=== PATIENT | female | born 1985 | race Caucasian/White ===

== ENCOUNTER 2018-08-01 07:20 | Emergency (ER) | payer OTHER, MEDICAID, SELFPAY ==
--- NOTE | 2018-08-01 07:22 | ED_ITS ---
HPI - General Adult General Chief complaint: Upper Respiratory Symptoms Stated complaint: thinks strep throat Time Seen by Provider: 08/01/18 07:21 Source: patient Mode of arrival: ambulatory Limitations: no limitations History of Present Illness HPI narrative: Otherwise healthy 32-year-old female here for evaluation of a sore throat. Patient states that her and son had similar symptoms a couple days ago and they resolved within a couple days. She states that for the past 1-2 days she has had some sinus congestion with ear fullness. She states that last evening she started to car often had a very sore throat. Did have a fever this morning and took Tamiflu and Motrin prior to arrival here in the ER. Has had strep throat in the past. Related Data Previous Rx's Medication Instructions Recorded citalopram [Celexa] 30 mg PO QDAY #45 tab 10/01/17 Allergies Allergy/AdvReac Type Severity Reaction Status Date / Time No Known Drug Allergies Allergy Verified 03/29/18 18:09 Review of Systems Constitutional Reports fever(s) and Denies headache(s) Eyes Denies blurry vision ENT Ears, Nose, Mouth, and Throat: Denies vertigo, Denies dizziness, Denies headache (s), Denies mouth pain, Denies disequilibrium, Denies post nasal drip, Reports sinus pain, Reports sinus pressure, Reports sore throat and Reports throat swelling Cardiovascular Denies chest pain and Denies dyspnea Respiratory Reports cough and Denies dyspnea Gastrointestinal Gastrointestinal: Denies nausea and Denies vomiting Integumentary/Breasts Denies rash Neurologic Denies vertigo, Denies dizziness, Denies headache(s) and Denies disequilibrium Allergic/Immunologic Reports throat swelling PFSH Medical History Healthy adult (Acute) Surgical History No pertinent past surgical history (Acute) History of third molar tooth extraction (Resolved) Social History marital status: Smoking Status: Former smoker Exam Initial Vital Signs Initial Vital Signs: Vital Signs Temperature 98.7 F 08/01/18 07:26 Pulse Rate 110 H 08/01/18 07:26 Respiratory Rate 20 08/01/18 07:26 Blood Pressure 150/95 H 08/01/18 07:26 Pulse Oximetry 96 08/01/18 07:26 Const General: cooperative, comfortable, well developed, well groomed, No acute distress and diaphoretic Orientation: alert, awake and oriented x3 HENMT Head: normal to inspection, normocephalic and atraumatic Ears: TM's normal bilaterally Nose: external nose normal Face and sinus: normal facial exam Mouth: oral mucosae normal Teeth and gingiva: dentition normal Throat: abnormal tonsil, uvula not displaced, no uvular edema and other ( Posterior oral pharynx edema with erythema and exudate) Neck Lymphatic: lymphadenopathy Resp Effort & Inspection: normal respiratory effort Auscultation: clear to auscultation bilaterally Cardio Rate: tachycardic Heart Sounds: no murmurs Pulses: radial pulses present Skin Lesions: no lesions Rashes: no rashes Neuro General: alert, awake and oriented x3 Extrem General: normal to inspection and capillary refill normal Psych Appearance: grossly normal and well kempt Course Vital Signs - 8 hr 08/01/18 07:26 Temperature 98.7 F Pulse Rate 110 H Respiratory Rate 20 Blood Pressure 150/95 H Pulse Oximetry 96 Medical Decision Making Lab Data Lab results reviewed: Yes I reviewed the patient's lab results. MDM Narrative Medical decision making narrative: Patient was group A strep positive and this does fit with her history and physical exam. Offered her to options for treatment to include an intramuscular injection of Bicillin versus oral antibiotics at home. Patient opted for the intramuscular injection which was given here in the emergency department. She was instructed on other symptom treatment to include staying hydrated and Tylenol/Motrin for any fevers and body aches. Patient was given return precautions. She expressed understanding and agreement plan. Discharge Plan Departure Patient Disposition: Home Clinical Impression: Acute streptococcal pharyngitis Instructions: DI for Strep Throat Activity Restrictions/Additional Instructions: Make sure you are staying hydrated. Frequent washing of hands using the mask like we discussed will help prevent spread. Use Tylenol/ibuprofen for any fever or body aches. Return to the emergency department for any new or worsening symptoms Prescriptions: No Action citalopram [Celexa] 20 MG tablet 30 mg PO QDAY Qty: 45 RF: 3
[2018-08-01 07:26] VITALS: BP 150/95; PULSE 110; RESP 20; TEMP 37.1; O2SAT 96; BMI 39.0
[2018-08-01] MEDS: PENICILLIN G BENZATHINE 1,200,000 UNIT/2 ML SYRINGE 1200000 UNIT IM (08:06)
[2018-08-01 08:30] VITALS: BP 133/88; PULSE 86; RESP 18; TEMP 36.6; O2SAT 98
[2018-08-01] MEDS: BENZOCAINE/MENTHOL 1 LOZ PKT 1 EACH PO (08:36)
== END 2018-08-01 08:42 | disposition home or self-care (01) ==
PROVIDERS: Emergency Provider Emergency Medicine; PCP Obstetrics & Gynecology
DX: J02.0 Streptococcal pharyngitis (principal)
CPT/HCPCS: 87880; 96372; 99282; 99283; J0561

== ENCOUNTER 2020-02-01 16:32 | Emergency (ER) | payer OTHER, MEDICAID, SELFPAY ==
[2020-02-01 16:46] VITALS: BP 177/101; PULSE 82; RESP 16; TEMP 37.1; O2SAT 99; BMI 45.1
[2020-02-01 17:47] VITALS: BP 152/81; PULSE 91; RESP 16; O2SAT 96
[2020-02-01] MEDS: KETOROLAC 60 MG/2 ML VIAL 30 MG IM (17:53)
[2020-02-01] MEDS: HYDROCODONE/ACET 5/325 TABLET 1 TAB PO (17:53)
[2020-02-01] MEDS: AMOXICILLIN 250 MG CAPSULE 1000 MG PO (18:03)
--- NOTE | 2020-02-01 18:13 | ED.DENTAL ---
HPI - Dental/Oral <Carol SakrarRANJEET - Last Filed: 02/01/20 18:22> General Chief complaint: Dental/Oral Stated complaint: states abcessed tooth Time Seen by Provider: 02/01/20 17:04 Source: patient Mode of arrival: Ambulatory Limitations: no limitations History of Present Illness HPI Narrative: 34yo female history of multiple dental caries, presents emergency department complaining of tooth pain to her right lower jaw for the past few days. Patient reports she was eating a cashew when a piece broke off and went down into my tooth under jaw line. Patient states she has been trying to remove the piece with water, a Waterpik, and picking it. However, she states she has had increasing pain and noticed some swelling today. She is concern is infected. She does have a dentist appointment scheduled on Sunday. She states ?I was trying to wait until Sunday to get into the dentist but the pain is too bad ?. Patient states she has been alternating Tylenol and ibuprofen which is not helping. She denies any other symptoms such as chest pain, shortness of breath, fevers, chills, nausea, vomiting, diarrhea, or any other concerns. Related Data Home Medications Medication Instructions Recorded Confirmed multivitamin 1 tab PO DAILY 04/30/19 04/30/19 Previous Rx's Medication Instructions Recorded lidocaine-prilocaine 2.5 %-2.5 % 1 applictn TOP BID PRN #5 gram 10/15/19 topical cream norelgestromin 150 mcg-e.estradiol 1 patch TRANSDERMAL QWEEK #3 each 10/15/19 35 mcg/24 hr weekly transderm patch valacyclovir 1 gram tablet 1,000 mg PO BID PRN #20 tab 10/15/19 citalopram 20 mg tablet 20 mg PO DAILY #90 tab 10/27/19 trazodone 50 mg tablet 50 mg PO BEDTIME #90 tab 10/27/19 levonorgestrel 1.5 mg tablet 1.5 mg PO ONCE #1 tab 12/31/19 amoxicillin 500 mg PO Q8H 3 Days #11 cap 02/01/20 amoxicillin 500 mg PO Q8H 3 Days #9 cap 02/01/20 hydrocodone-acetaminophen [Wyocena] 1 tab PO Q8H PRN #3 tab 02/01/20 Allergies Allergy/AdvReac Type Severity Reaction Status Date / Time No Known Drug Allergies Allergy Verified 10/15/19 10:32 Review of Systems <RANJEET Forrest - Last Filed: 02/01/20 18:22> Review of Systems Narrative: REVIEW OF SYSTEMS: GENERAL: Denies fever or chills. HENT: No head trauma. Reports dental pain, see HPI. CARDIOVASCULAR: No chest pain. RESPIRATORY: No shortness of breath or cough. GASTROINTESTINAL: No nausea, vomiting, diarrhea, or constipation. MUSCULOSKELETAL: No pain, weakness, or deformities. INTEGUMENTARY: No rash, lesions, or pruritus. NEURO: Denies numbness or tingling. Patient History <RANJEET Forrest - Last Filed: 02/01/20 18:22> Medical History Anxiety (Chronic ~2007) Chronic back pain (Chronic ~2010) Depression (Chronic ~2007) Healthy adult (Acute) Herpes (Inactive ~2010) Painful menstrual periods (Chronic ~2018) Surgical History History of third molar tooth extraction (Resolved) No pertinent past surgical history (Acute) Family History Father History of blood clots Grandfather History of heart disease Social History marital status: Smoking Status: Former smoker Tobacco: How many years used: 9 second hand exposure: No alcohol intake: current (sparkling sweet wine every once in a while. Maybe once a month.) substance use type: marijuana (I smoke marijuana two to three times a week.) Smoking Status: Former smoker alcohol intake frequency: 0-2 drinks per day Substance Use Type: marijuana Exam <RANJEET Forrest - Last Filed: 02/01/20 18:22> Initial Vital Signs Initial Vital Signs: Vital Signs Temperature 98.8 F 02/01/20 16:46 Pulse Rate 82 02/01/20 16:46 Respiratory Rate 16 02/01/20 16:46 Blood Pressure 177/101 H 02/01/20 16:46 Pulse Oximetry 99 02/01/20 16:46 PHYSICAL EXAMINATION: GENERAL: Awake and alert. Answers questions promptly and appropriately. Vital signs noted. HENT: Normocephalic, atraumatic. Ear canals patent. Multiple caries noted, fractured tooth noted to right lower draw approximately tooth #29-28. A small amount of food particles noted within the tooth. Surrounding gingivitis, no visual abscess. Dental block was performed. EYES: Conjunctiva pink, sclera white, no periorbital swelling. No discharge. RESPIRATORY: Normal respiratory rate, trachea midline, airway patent. No stridor, nasal flaring or accessory muscle use. MUSCULOSKELETAL: Normal gait and coordination. Equal tone and mass bilaterally. EXTREMITIES: Moves all extremities. SKIN: Warm, dry, soft, appropriate color for ethnicity. No lesions, rashes, or wounds to visualized areas. NEURO: Alert and Oriented X 3. Good coordination. No ataxia or cognitive issues. PSYCH: Appropriate affect and mood. <Kwabena Arroyo MD - Last Filed: 02/04/20 07:37> Initial Vital Signs Initial Vital Signs: Vital Signs Temperature 98.8 F 02/01/20 16:46 Pulse Rate 82 02/01/20 16:46 Respiratory Rate 16 02/01/20 16:46 Blood Pressure 177/101 H 02/01/20 16:46 Pulse Oximetry 99 02/01/20 16:46 Procedures <RANJEET Forrest - Last Filed: 02/01/20 18:22> Nerve Block Nerve Block 1: Local Anesthetic: bupivacaine 0.5% Amount of anesthesia used (mL): 2 Side: right Intraoral Nerve Block: other (Dental block. ) Scores <RANJEET Forrest - Last Filed: 02/01/20 18:22> GCS Pinky coma scale eye opening: Spontaneous Pinky coma scale verbal response: Orientated [place] coma scale motor response: Obey commands [place] coma scale total score: 15 Course <RANJEET Forrest - Last Filed: 02/01/20 18:22> Course Course Narrative: Dental block was performed, patient reported immediately relief. 20 minutes later, patient states pain return significantly. Patient was given Toradol, Wyocena, and 1st dose amoxicillin as pharmacies are closed at this time. Patient reported improved pain after administration medications. Orders Ordered: Discontinued Medications Hydrocodone Bitart/Acetaminophen (Wyocena 5/325) 1 tab PO NOW ONE Stop: 02/01/20 17:49 Last Admin: 02/01/20 17:53 Dose: 1 tab Documented by: SCANAPO Amoxicillin (Trimox) 1,000 mg PO NOW ONE Stop: 02/01/20 18:00 Last Admin: 02/01/20 18:03 Dose: 1,000 mg Documented by: SCANAPO Ketorolac Tromethamine (Toradol) 30 mg IM NOW ONE Stop: 02/01/20 17:49 Last Admin: 02/01/20 17:53 Dose: 30 mg Documented by: SHIRA Vital Signs Vital signs: Vital Signs - 8 hr 02/01/20 16:46 02/01/20 17:47 Temperature 98.8 F Pulse Rate 82 91 H Respiratory Rate 16 16 Blood Pressure 177/101 H Blood Pressure [Right Arm] 152/81 H Pulse Oximetry 99 96 <Kwabena Arroyo MD - Last Filed: 02/04/20 07:37> Orders Ordered: Discontinued Medications Hydrocodone Bitart/Acetaminophen (Wyocena 5/325) 1 tab PO NOW ONE Stop: 02/01/20 17:49 Last Admin: 02/01/20 17:53 Dose: 1 tab Documented by: SCANAPO Amoxicillin (Trimox) 1,000 mg PO NOW ONE Stop: 02/01/20 18:00 Last Admin: 02/01/20 18:03 Dose: 1,000 mg Documented by: RYANAPO Ketorolac Tromethamine (Toradol) 30 mg IM NOW ONE Stop: 02/01/20 17:49 Last Admin: 02/01/20 17:53 Dose: 30 mg Documented by: SHIRA Vital Signs Vital signs: Vital Signs - 8 hr 02/01/20 16:46 02/01/20 17:47 Temperature 98.8 F Pulse Rate 82 91 H Respiratory Rate 16 16 Blood Pressure 177/101 H Blood Pressure [Right Arm] 152/81 H Pulse Oximetry 99 96 [facility] - Dental/Oral <RANJEET Forrest - Last Filed: 02/01/20 18:22> Medical Records Attestation: I reviewed the patient's medical records. Lab Data Attestation: I reviewed the patient's lab results. MDM Narrative Medical decision making narrative: 34-year-old female presenting emergency department for complaints of tooth pain. Due to examination patient clearly has a fracture to with concerns for tooth abscess due to surrounding gingivitis and tenderness with palpation. Dental block was performed, patient reported immediately if however pain returned despite the use of bupivacaine. Patient was given Toradol and Wyocena in the emergency department and reported improved pain after administration. Return precautions were given for new or worsening symptoms. Patient was encouraged to follow up with her dentist, she verbalized agreement with plan of care. Discharge Plan Departure Patient Disposition: Home Clinical Impression: Tooth abscess Discharge Date/Time: 02/01/20 18:08 Instructions: Tooth Abscess, DI for Dental Pain Activity Restrictions/Additional Instructions: Thank you for entrusting me with your care today. As discussed, you most likely have a tooth abscess. I prescribed you antibiotics, please take these as prescribed. Follow-up with your dentist as scheduled on Sunday. I have numb the area, use caution when chewing. You have been prescribed a narcotic medication, this medication can make you drowsy. Do not drive while using this medication or perform activities that require mental alertness. These medications can also make you constipated, please use [id number] docusate sodium as needed for constipation. Return emergency department for any new or worsening symptoms such as chest pain, shortness of breath, severe pain, or any other concerns. Prescriptions: New amoxicillin 500 mg capsule 500 mg PO Q8H 3 Days Qty: 11 RF: 0 hydrocodone-acetaminophen [Wyocena] 5-325 mg tablet 1 tab PO Q8H PRN (Reason: pain) Qty: 3 RF: 0 amoxicillin 500 mg capsule 500 mg PO Q8H 3 Days Qty: 9 RF: 0 No Action levonorgestrel [Plan B One-Step] 1.5 mg tablet 1.5 mg PO ONCE Qty: 1 RF: 0 multivitamin tablet 1 tab PO DAILY RF: 0 citalopram 20 mg tablet 20 mg PO DAILY Qty: 90 RF: 1 trazodone 50 mg tablet 50 mg PO BEDTIME Qty: 90 RF: 1 Xulane 150-35 mcg/24 hr patch weekly 1 patch transdermal QWEEK Qty: 3 RF: 4 valacyclovir 1 gram tablet 1,000 mg PO BID PRN (Reason: breakouts) Qty: 20 RF: 2 lidocaine-prilocaine 2.5-2.5 % cream 1 applictn TOP BID PRN (Reason: breakout pain) Qty: 5 RF: 2 Referrals: Oli Calabrese, [Primary Care Provider] -
== END 2020-02-01 18:08 | disposition home or self-care (01) ==
PROVIDERS: Emergency Provider Nurse Practitioner; PCP Family Medicine
DX: K04.7 Periapical abscess without sinus (principal)
CPT/HCPCS: 64450; 96372; 99283; J1885

== ENCOUNTER → 2020-05-25 11:15 | Outpatient (CLI) | payer OTHER, MEDICAID, SELFPAY ==
--- NOTE | 2020-05-25 11:16 | DI.US.S_ITS ---
PROCEDURE: US PELVIC COMPLETE INDICATIONS: uterine fibroids TECHNIQUE: Real-time scanning was performed of the pelvic organs, with image documentation. Additional endovaginal scanning was necessary due to incomplete visualization of the adnexal and endometrial structures by transabdominal scanning. COMPARISON: None. FINDINGS: Transabdominal scanning: Limited scanning through the kidneys shows no hydronephrosis. No pathologic free abdominal or pelvic fluid. Endovaginal scanning: Uterus: Uterus is normal in size at 8.4 x 3.8 x 5.1 cm. Uterine fibroids are not seen. The endometrium measures 4.4 mm in combined thickness. Ovaries: The right ovary measures 2.9 x 1.6 x 1.8 cm. The left ovary measures 3.4 x 2.2 x 2.7 cm. The ovaries have a normal sonographic appearance, with normal-appearing physiologic cystic follicles seen. No adnexal masses are seen. Normal appearing arterial flow is confirmed to each ovary. IMPRESSION: Normal pelvic ultrasound, without uterine fibroids identified. Dictated by: Manish West M.D. on 05/25/2020 at 13:56 Approved by: Manish West M.D. on 05/25/2020 at 13:57
== END ==
PROVIDERS: PCP Family Medicine; Referring Provider Nurse Practitioner; Visit Provider Nurse Practitioner
DX: D25.9 Leiomyoma of uterus, unspecified (principal)
CPT/HCPCS: 76856

== ENCOUNTER → 2020-12-17 09:15 | Outpatient (CLI) | payer OTHER, MEDICAID, SELFPAY ==
[2020-12-17 10:46] LABS: COVID19 -Nasal RAPID Negative (Negative)
== END ==
PROVIDERS: PCP Nurse Practitioner; Visit Provider Surgery
DX: Z20.822 Contact with and (suspected) exposure to COVID-19 (principal)
CPT/HCPCS: 87635; C9803

== ENCOUNTER 2020-12-20 10:11 | Day surgery (SDC) | payer OTHER, MEDICAID, SELFPAY ==
[2020-12-20 11:02] VITALS: BP 110/69; PULSE 61; RESP 16; TEMP 37.1; O2SAT 100; BMI 40.8
[2020-12-20] MEDS: LACTATED RINGERS 1,000 ML 200 ML IV (11:17)
--- NOTE | 2020-12-20 11:51 | PM.PREOP ---
Pre-operative Note Interval Note History & Physical reviewed/Exam performed by Physician: Yes Changes to H&P: No
[2020-12-20] MEDS: fentaNYL 250 MCG/5 ML INJ IV (12:07)
[2020-12-20] MEDS: MIDAZOLAM 5 MG/5 ML VIAL IV (12:14)
--- NOTE | 2020-12-20 12:25 | PM.OP.ENDO ---
Operative Date/Time/Diagnoses Date of procedure: 12/20/20 Time of procedure: 12:25 Pre-op diagnosis: Abdominal pain Post-op diagnosis: same Procedure & Clinicians Study performed: Colonoscopy Same procedure as scheduled: Yes Indications: 35-year-old female with persistent abdominal pain normal imaging here for colonoscopy Surgeon: Gamaliel Brown Procedure Notes Procedure in detail: Medications: Conscious sedation using 9mg IV midazolam and 250mcg IV of fentanyl The history and physical was performed/updated and the patient is ASA class is 2. The procedure was discussed in detail with the patient. Potential risks complications including infection, bleeding, missed diagnosis, perforation, need for surgery, and were explained. Their questions were answered and informed consent was obtained. Patient was brought to the procedure room and placed standard monitoring equipment. The patient's vital signs were monitored continuously throughout the entire procedure. Prior to starting time-out was performed. The patient was placed in the left lateral recumbent position. Procedural sedation was administered. Examination began with a thorough inspection of the perianal area there was no evidence of fissures, fistulae, external hemorrhoids or cutaneous malignancy. The colonoscopy scope was then placed into the anal canal and was advanced to the cecum, which was identified by the ileocecal valve, the appendiceal orifice and the confluence of the taenia. The scope was then slowly withdrawn examining colon thoroughly in all directions, irrigating it of any residual stool. No masses or polyps No diverticulosis The patient tolerated the procedure well. They will be discharged once criteria are met. The prep was of good/excellent quality. The withdrawl time was 7 minutes. The sedation time was 24 minutes. Specimen(s): none sent Complications: none Impression: Normal colonoscopy Post-procedure Plan for aftercare: Will likely need diagnostic laparoscopy to evaluate for endometriosis Disposition: same day surgery
[2020-12-20 12:28] VITALS: BP 104/62; PULSE 66; RESP 13; TEMP 36.4; O2SAT 99
[2020-12-20 12:33] VITALS: BP 97/54; PULSE 60; RESP 13; O2SAT 100
[2020-12-20 12:37] VITALS: BP 113/64; PULSE 60; RESP 10; O2SAT 100
[2020-12-20 12:42] VITALS: BP 95/66; PULSE 61; RESP 13; TEMP 36.4; O2SAT 100
== END 2020-12-20 12:50 | disposition home or self-care (01) ==
PROVIDERS: PCP Nurse Practitioner; Referring Provider Surgery; Visit Provider Surgery
PROC: 0DJD8ZZ Inspection of Lower Intestinal Tract, Via Natural or Artificial Opening Endoscopic (ICD-10-PCS; CPT 45378; principal; 2020-12-20 11:30)
DX: R10.32 Left lower quadrant pain (principal); Z68.41 Body mass index [BMI] 40.0-44.9, adult; E66.01 Morbid (severe) obesity due to excess calories
CPT/HCPCS: 45378; 99152; J2250; J3010

== ENCOUNTER → 2021-01-13 11:34 | Outpatient (CLI) | payer OTHER, MEDICAID, SELFPAY ==
[2021-01-13 12:01] LABS: COVID19 -Nasal RAPID Negative (Negative)
== END ==
PROVIDERS: PCP Nurse Practitioner; Visit Provider Obstetrics & Gynecology
DX: Z01.812 Encounter for preprocedural laboratory examination (principal); Z20.822 Contact with and (suspected) exposure to COVID-19
CPT/HCPCS: 87635

== ENCOUNTER 2021-01-14 09:09 | Day surgery (SDC) | payer OTHER, MEDICAID, SELFPAY ==
[2021-01-10 09:11] VITALS: BMI 41.0
[2021-01-14] VITALS (18 sets, daily range): BP systolic 104–148; BP diastolic 41–84; PULSE 60–87; RESP 10–88; TEMP 36.2–36.6; O2SAT 94–100; BMI 40.8
--- NOTE | 2021-01-14 | PATH_ITS ---
[facility] Accession Number: [id number] . 01 Material submitted: . PART A: endocervix - ENDOCERVICAL CURETTINGS PART B: cervix - LEEP SPECIMEN . 02 Diagnosis: A. Endocervix, Curettings: Squamous and endocervical epithelium with no evidence of neoplasia. . B. 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 Please see comment. No evidence of malignancy. [facility] 01/20/2021 1338 Local . 02 Comment: Part B: High-grade squamous intraepithelial neoplasia is present at the edge of some of the specimen fragments; however, because it is fragmented, a definitive evaluation of margins cannot performed. There is no evidence of an invasive carcinoma. . 02 Electronically signed: . Tahira Guardado MD, Pathologist NPI- [id number] . 01 Gross description: . A. The specimen is received in formalin, labeled endocervical curetting, and consists of multiple christine-pink fragments of soft tissue admixed with mucus and clotted blood measuring 2.5 x 2.5 x 0.2 cm in aggregate. The specimen is filtered and entirely submitted in cassette A1. B. The specimen is received in formalin, labeled LEEP, and consists of four irregular, christine-pink, smooth portions of ectocervix measuring 2.5 x 1.5 x 0.5 cm in aggregate. The margins are inked blue. The fragments are serially sectioned. The specimen is entirely submitted in cassettes B1-B5. (EA:[id number]) /CHRISTOPHER 01/15/2021 1504 Local . 02 Microscopic: . A. A p16 immunohistochemical stain was performed to characterize cells of interest and is negative for block nuclear and cytoplasmic reactivity, which mitigates against an interpretation of high-grade squamous intraepithelial lesion. The control stain showed appropriate reactivity. . * This test was developed and its performance characteristics determined by [facility]. It has not been cleared or approved by the U.S. Food and Drug Administration. The FDA has determined that such clearance or approval is not necessary. This test is used for clinical purposes. It should not be regarded as investigational or for research. . 02 Pathologist provided ICD-10: D06.9 . 02 CPT . 087741, 811348, F47128 Performed at: 01 [facility] [address] [facility], [place], [place] [id number] MD Kurtis Munguia MD Phone: [phone] Performed at: 02 [facility] [address] [place], [place] [id number] MD Tahira Guardado MD Phone: [phone]
--- NOTE | 2021-01-14 09:49 | PM.PREOP ---
Pre-operative Note COVID-19 COVID-19 status: Negative Result date/Date tested (Pos, Neg/Pending): 01/14/21 Interval Note History & Physical reviewed/Exam performed by Physician: Yes Changes to H&P: No
[2021-01-14] MEDS: LACTATED RINGERS 1,000 ML 42 ML IV ×2 (09:55→12:51)
--- NOTE | 2021-01-14 10:18 | SUR.OPER ---
Lithotomy on padded OR bed, head on pillow, arms secured on padded arm boards at <90 degrees abduction. Legs secured in padded yellow fins stirrups.
[2021-01-14] MEDS: BUPIVACAINE 0.5% W/ EPI (PF) 30 ML VIAL INJ (11:18)
[2021-01-14] MEDS: POTASSIUM IODIDE/IODINE 473 ML SOLUTION TOP (11:40)
[2021-01-14] MEDS: LIDOCAINE 1% W/EPI 20 ML INJ (11:41)
[2021-01-14] MEDS: FERRIC SUBSULFATE 8 GM SOLUTION 8 ML TOP (11:45)
--- NOTE | 2021-01-14 12:09 | PM.OP.1 ---
Operative Date/Time/Diagnoses Date of procedure: 01/14/21 Time of procedure: 10:15 Pre-op diagnosis: Rectal pain, high grade cervical dysplasia Post-op diagnosis: same Procedure & Clinicians Procedure: diagnostic laparoscopy, LEEP Same procedure as scheduled: Yes Indications: rectal pain, high grade cervical dysplasia Surgeon: Kat Chong Aircraft Design Engineer: Alyssa Corley Anesthesia Type: General Operative Notes Findings: Morbid obesity. Normal uterus, tubes, ovaries. No signs of endometriosis or adenomyosis. Mild filmy adhesions of descending sidewall to abdominal wall. Nomal vulva, vaginal. Mild cystocele and rectocele. Specimen(s): other (LEEP specimen, endocervical curettings) Estimated Blood Loss (mL): 5 Procedure in detail: After informed consent was obtained, the patient was transferred to the operating room. General anesthesia was obtained and she was placed in the dorsal lithotomy position and prepped and draped in the usual sterile fashion. A sponge stick was placed in the vagina, which was not prepped. Attention was then turned to the abdomen, where 1ccs of bupivicaine was injected just inferior to the umbilicus. A 5mm incision was made and insufflation attempted with the Veress needle, but it quickly became evident that the depth of the abdominal wall required a cut down method. A cut down technique was used to visualzed the fascia, which was then elevated with chris clamps and the Veress used to insufflate the abdomen, after using a drop of saline to confirm intraabdominal placement. A 5mm port was placed under direct visualization with the laparoscope, and 5mm ports placed laterally after injection of local anesthetic, under direct visualization. A careful inspection of the pelvis both anteriorly and posteriorly revealed no abnormalities, with normal pelvic organs as above. Filmy adhesions were reduced with the endoshears without difficulty. The laparoscope and ports were removed and the abdomen allowed to desufflate, and the subcutaneous space at the umbilical site was closed with 3-0vicryl in an interrupted fashion. The skin was closed with 4-0 biosyn at all three port sites, and covered with bandages ans steri strips. Attention was then turned to the vulva, where the sponge stick was removed and a coated speculum inserted into the vagina. Lugols was applied to the cervix and upper vagina, and careful inspection for areas of reduced uptake was performed. Visibility was affected by vaginal vault prolapse and body habitus, but could be effected with a coated tenaculum. The cervix was injected with 5ccs of 1% lidocaine, and the smallest LEEP loop was used to remove a conical LEEP specimen in parts, as each portion of the cervix could be brought into view with the tenaculum. Hemostasis was achieved with rollerball cautery, and Monsel's solution was applied with good hemostasis noted. The speculum was removed from the vagina. The patient tolerated both portions of the case well, and was transferred to the PACU in stable condition. Post-operative Condition: stable Disposition: PACU Plan for aftercare: Home with routine precautions.
[2021-01-14] MEDS: ONDANSETRON 4 MG/2 ML INJ IV (12:16)
--- NOTE | 2021-01-14 12:37 | SUR.PHASEI ---
1207 pt. vomited small amount of clear mucus. given meds for nausea, luz. well, states px is 1-2 to her left abdomen and is more tolerable than the nausea at this time. at 1235 given queaseEase and some luis kei, which she is also tolerating. she does not want any px meds at this time. ongoing monitoring.
[2021-01-14] MEDS: ePHEDrine 50 MG/ML VIAL 25 MG IM (13:17)
== END 2021-01-14 14:08 | disposition home or self-care (01) ==
PROVIDERS: PCP Nurse Practitioner; Referring Provider Obstetrics & Gynecology; Visit Provider Obstetrics & Gynecology
PROC: (CPT 49320; principal; 2021-01-14 10:15)
PROC: 0UBC7ZZ Excision of Cervix, Via Natural or Artificial Opening (ICD-10-PCS; CPT 57522; 2021-01-14 10:15)
DX: D06.9 Carcinoma in situ of cervix, unspecified (principal); B97.7 Papillomavirus as the cause of diseases classified elsewhere; E66.9 Obesity, unspecified; Z68.41 Body mass index [BMI] 40.0-44.9, adult; F41.9 Anxiety disorder, unspecified; K62.89 Other specified diseases of anus and rectum; K66.0 Peritoneal adhesions (postprocedural) (postinfection)
CPT/HCPCS: 49320; 57522; 81025; A9270; J0330; J1100; J1885; J2250; J2405; J2704; J3010

== ENCOUNTER 2021-01-16 16:56 | Emergency (ER) | payer OTHER, MEDICAID, SELFPAY ==
[2021-01-16 17:05] VITALS: BP 129/65; PULSE 72; RESP 20; TEMP 36.6; O2SAT 100; BMI 40.8
--- NOTE | 2021-01-16 18:06 | ED_ITS ---
HPI - Abdominal Pain General Chief Complaint: Abdominal Pain Stated Complaint: Poss post surgery complications Time Seen by Provider: 01/16/21 18:04 Source: patient and old records reviewed Mode of arrival: Ambulatory Limitations: no limitations History of Present Illness HPI narrative: This is a 35-year-old female comes in 3 days status post exploratory laparoscopic surgery. Patient was being evaluated for endom etriosis. She states that immediately afterwards she had significant emesis and was dry heaving for about an hour. She is unsure but thought that she was given epinephrine. Patient states that she has been doing well except she noticed that her bruising at her middle incision had increased in size in the last 24 hours. She described as a golf ball-sized half tribal that has increased to about a large softball or small cantaloupe size. She has had some increasing abdominal pain although she defers any pain medication here. She denies any new fevers or chills. She has not any nausea or vomiting. She states she has had discomfort with movement but that her pain is only increased in the area of bruising. Patient has not had a bowel movement since immediately after the surgery. She did feel like she had to have a bowel movement. Patient has had flatus. She denies any urinary symptoms. She takes fluoxetine for anxiety but denies any other medical issues. She states she also had a LEEP biopsy during the procedure and she has been referred to GI to rest of her evaluation as her ex lap was negative for endometriosis. Patient does not take any blood thinners. She has not had any bleeding issues elsewhere. She has not had any bleeding from her incision sites. Related Data Home Medications Medication Instructions Recorded Confirmed multivitamin 1 tab PO DAILY 04/30/19 01/14/21 Previous Rx's Medication Instructions Recorded lidocaine-prilocaine 2.5 %-2.5 % 1 applictn TOP BID PRN #5 gram 10/15/19 topical cream valacyclovir 1 gram tablet 1,000 mg PO BID PRN #20 tab 10/15/19 fluoxetine 10 mg capsule 10 mg PO DAILY #60 cap 12/16/20 oxycodone 5 mg PO Q6H PRN #7 tab 01/14/21 Allergies Allergy/AdvReac Type Severity Reaction Status Date / Time No Known Drug Allergies Allergy Verified 01/13/21 11:37 Review of Systems Review of Systems ROS Unobtainable: All systems reviewed & are unremarkable except as noted in HPI and below Patient History Medical History Acute thoracic myofascial strain ADHD Anxiety (~2007) Chronic back pain (~2010) Class 3 obesity Cystic acne Depression (~2007) Depression affecting in third trimester, antepartum (08/17/17) Healthy adult Herpes (~2010) History of macrosomia in in prior , currently in third trimester (08/17/17) Low back strain Obesity affecting in third trimester (08/17/17) Painful menstrual periods (~2018) Palpitations Unwanted fertility Surgical History History of third molar tooth extraction No pertinent past surgical history Family History Father History of blood clots Grandfather History of heart disease Grandmother Breast cancer Social History marital status: unknown household members: significant other and children occupational status: employed Smoking Status: Former smoker Tobacco: How many years used: 9 second hand exposure: No alcohol intake: current substance use type: marijuana Smoking Status: Former smoker alcohol intake frequency: holidays/special occasions only Substance Use Type: marijuana Exam Narrative Exam Narrative: GENERAL: Alert and oriented x three, well-nourished female in mild distress. HEENT: Head normocephalic, atraumatic, EOMI, pupils reactive, face symmetric, moist mucous membranes NECK: Supple, full range of motion CARDIOVASCULAR: Regular rate and rhythm without murmurs, rubs or gallops. RESPIRATORY: Breath sounds equal bilaterally, no wheezes rales or rhonchi. ABDOMEN: Soft, mild tenderness over area bruising. Patient has 3 incisions which are intact, clean and dry without any erythema or drainage. There is a cantaloupe sized area of ecchymosis from the middle incision towards the pubic area. There is no hematoma palpable on exam. The area is not warm, erythematous or have any other skin changes. Normoactive bowel sounds all 4 quadrants. No guarding or rebound, rigidity, no mass : No CVA tenderness EXTREMITIES: Normal range of motion, no clubbing or edema. Neurovascularly intact NEUROLOGICAL: Cranial nerves II through XII grossly intact. Moving all extremities SKIN: Warm, dry, no petechiae, no rashes or lesions. Initial Vital Signs Initial Vital Signs: Vital Signs Temperature 97.8 F 01/16/21 17:05 Pulse Rate 72 01/16/21 17:05 Respiratory Rate 20 01/16/21 17:05 Blood Pressure 129/65 01/16/21 17:05 Pulse Oximetry 100 01/16/21 17:05 Course Orders Ordered: Discontinued Medications Sodium Chloride (Normal Saline 0.9%) 1,000 mls @ 1,000 mls/hr IV BOLUS ONE Stop: 01/16/21 19:13 Last Infusion: 01/16/21 19:46 Dose: 0 mls/hr Documented by: Admin: 01/16/21 18:46 Dose: 1,000 mls/hr Documented by: RUPALI Reevaluation(s) Reevaluation #1: Patient updated on labs and findings today as well as US changes. Plan for watchful waiting and follow up with her OBGYN for recheck. Patient is to return if increasing size and we discussed return precautions. Time: 19:39 Vital Signs Vital signs: Vital Signs - 8 hr 01/16/21 17:05 01/16/21 19:13 Temperature 97.8 F Pulse Rate 72 60 Respiratory Rate 20 Blood Pressure 129/65 116/56 L Pulse Oximetry 100 99 MDM - Abdominal Pain Lab Data Attestation: I reviewed the patient's lab results. Result diagrams: 01/16/21 17:45 01/16/21 17:45 Labs: Lab Results 01/16/21 01/16/21 Range/Units 17:45 17:45 WBC 7.6 (4.5-11.0) X10^3/uL RBC 4.01 (4.0-5.2) X10^6/uL Hgb 12.1 (12.0-16.0) g/dL Hct 35.5 L (36-46) % MCV 88.5 (80-100) fL MCH 30.2 (26-34) PG MCHC 34.1 (30-36) % RDW 13.2 (11.6-14.8) % Plt Count 225 (150-400) X10^3/uL Neut % (Auto) 47.3 L (50-75) % Lymph % (Auto) 41.4 H (25-40) % [place] % (Auto) 5.7 (3-14) % Eos % (Auto) 5.1 H (2-4) % Baso % (Auto) 0.5 (0-2) % Neut # (Auto) 3600 (8424-7982) /uL Lymph # (Auto) 3100 (4329-4393) /uL [place] # (Auto) 400 (0-900) /uL Eos # (Auto) 400 (0-450) /uL Baso # (Auto) 0 (0-100) /uL Sodium 137 (137-145) mmol/L Potassium 3.6 (3.4-5.1) mmol/L Chloride 103 (98-107) mmol/L Carbon Dioxide 28 (22-32) mmol/L BUN 10 (7-17) mg/dL Creatinine 0.60 (0.52-1.04) mg/dL Estimated GFR > 60.0 (>60) mL/min BUN/Creatinine Ratio 16.7 (6-22) Glucose 90 (70-100) mg/dL Calcium 8.8 (8.4-10.2) mg/dL Total Bilirubin 0.7 (0.2-1.3) mg/dL AST 22 (14-36) IU/L ALT 13 (<35) IU/L Alkaline Phosphatase 51 (38-126) U/L Total Protein 7.1 (6.3-8.2) g/dL Albumin 3.9 (3.5-5.0) g/dL Globulin 3.2 (1.7-4.1) g/dL Albumin/Globulin Ratio 1.2 (1.0-2.8) Lipase 28 (23-300) U/L Point of care testing: Point of Care Testing Test Results Negative Urine Dip Bedside Urine Glucose Negative Bedside Urine Bilirubin - Negative Bedside Urine Ketone - Negative Urine Specific [place] 1.015 Bedside Urine Occult Blood +/- Bedside Urine pH 6.5 Bedside Urine Protein - Negative Bedside Urine Urobilinogen - Negative Bedside Urine Nitrite - Negative Bedside Urine Leukocytes - Negative Esterase Imaging Data US - abdomen: Radiologist's Impression: [address] [id number] ReportSigned Patient: Jaleesa Coronado [facility]#: [id number]: 1985Acct:[id number]/Sex: 35 / FDate of Service: 01/16/21Loc: EDAccession Number: [id number] Procedure: US abdomen limited Ordering Provider: Amparo Salmon D.O. PROCEDURE: US ABDOMEN LIMITED INDICATIONS: HEMATOMA INFERIOR TO LAP SITE 2 DAYS AGO TECHNIQUE: Real-time scanning was performed of the abdominal and retroperitoneal organs, with image documentation. COMPARISON: None. FINDINGS: These images demonstrate increased thickness and echogenicity of the midline abdominal wall inferior to the umbilicus. There is no discrete fluid collection. IMPRESSION: Edematous changes in the midline anterior abdominal wall inferior to the umbilicus without discrete fluid collection. Dictated by: Blaise Villa M.D. on 01/16/2021 at 19:19 Approved by: Blaise Villa M.D. on 01/16/2021 at 19:20 MDM Narrative Medical decision making narrative: 35-year-old female status post exploratory laparoscopic surgery with increased bruising from her middle incision. Patient has some changes consistent with ecchymosis but no hematoma or seroma collection. Patient's labs from prior. Patient and I discussed plan for watchful waiting. She has follow-up with her OBGYN in the next several weeks and will call in the morning to set up closer follow-up. Discharge Plan Departure Patient Disposition: Home Clinical Impression: Postoperative ecchymosis Activity Restrictions/Additional Instructions: Follow up with Dr. Chong in the next week for recheck. May continue home medications as prescribed. It may be helpful to wear a band around your abdomen if this makes him more comfortable but is not required. Please return for fevers, increasing bruising or bleeding, lightheadedness or passing out, chest pain or shortness of breath, persistent vomiting, black or bloody stools or other new or concerning symptoms. Prescriptions: No Action multivitamin tablet 1 tab PO DAILY RF: 0 valacyclovir 1 gram tablet 1,000 mg PO BID PRN (Reason: breakouts) Qty: 20 RF: 2 lidocaine-prilocaine 2.5-2.5 % cream 1 applictn TOP BID PRN (Reason: breakout pain) Qty: 5 RF: 2 fluoxetine 10 mg capsule 10 mg PO DAILY Qty: 60 RF: 0 oxycodone 5 mg tablet 5 mg PO Q6H PRN (Reason: pain) Qty: 7 RF: 0 Referrals: Juana Betts ARNP [Primary Care Provider] - Rockwell,MD Kat [Physician] -
--- NOTE | 2021-01-16 18:14 | DI.US.S_ITS ---
PROCEDURE: US ABDOMEN LIMITED INDICATIONS: HEMATOMA INFERIOR TO LAP SITE 2 DAYS AGO TECHNIQUE: Real-time scanning was performed of the abdominal and retroperitoneal organs, with image documentation. COMPARISON: None. FINDINGS: These images demonstrate increased thickness and echogenicity of the midline abdominal wall inferior to the umbilicus. There is no discrete fluid collection. IMPRESSION: Edematous changes in the midline anterior abdominal wall inferior to the umbilicus without discrete fluid collection. Dictated by: Blaise Villa M.D. on 01/16/2021 at 19:19 Approved by: Blaise Villa M.D. on 01/16/2021 at 19:20
[2021-01-16 18:31] LABS: Add Manual Diff / Slide Review NO; Basophils Absolute Auto 0 /uL (0-100); Basophils Percent Auto 0.5 % (0-2); Eosinophils Absolute Auto 400 /uL (0-450); Eosinophils Percent Auto 5.1 % (2-4); Hematocrit 35.5 % (36-46); Hemoglobin 12.1 g/dL (12.0-16.0); Lymphocytes Absolute Auto 3100 /uL (1100-4500); Lymphocytes Percent Auto 41.4 % (25-40); Mean Corpuscular HGB Conc 34.1 % (30-36); Mean Corpuscular Hemoglobin 30.2 PG (26-34); Mean Corpuscular Volume 88.5 fL (80-100); Monocytes Absolute Auto 400 /uL (0-900); Monocytes Percent Auto 5.7 % (3-14); Neutrophils Absolute Auto 3600 /uL (1500-7000); Neutrophils Percent Auto 47.3 % (50-75); Platelet Count 225 X10^3/uL (150-400); Red Blood Cell Count 4.01 X10^6/uL (4.0-5.2); Red Cell Distribution Width 13.2 % (11.6-14.8); White Blood Cell Count 7.6 X10^3/uL (4.5-11.0)
[2021-01-16 18:43] LABS: Alanine Aminotransferase 13 IU/L (<35); Albumin 3.9 g/dL (3.5-5.0); Albumin Globulin Ratio 1.2 (1.0-2.8); Alkaline Phosphatase 51 U/L (38-126); Aspartate Aminotransferase 22 IU/L (14-36); BUN Creatinine Ratio 16.7 (6-22); Bilirubin Total 0.7 mg/dL (0.2-1.3); Blood Urea Nitrogen 10 mg/dL (7-17); Calcium 8.8 mg/dL (8.4-10.2); Carbon Dioxide 28 mmol/L (22-32); Chloride 103 mmol/L (98-107); Estimated Glomerular Filt Rate > 60.0 mL/min (>60); Globulin 3.2 g/dL (1.7-4.1); Glucose 90 mg/dL (70-100); HEMOLYSIS < 15 (0-50); Lipase 28 U/L (23-300); Potassium 3.6 mmol/L (3.4-5.1); Sodium 137 mmol/L (137-145); Total Protein 7.1 g/dL (6.3-8.2)
[2021-01-16] MEDS: SODIUM CHLORIDE 0.9% 1,000 ML 1000 ML IV (18:46)
[2021-01-16 19:13] VITALS: BP 116/56; PULSE 60; O2SAT 99
[2021-01-16 19:55] VITALS: BP 110/58; PULSE 64; RESP 18; O2SAT 99
== END 2021-01-16 19:56 | disposition home or self-care (01) ==
PROVIDERS: Emergency Provider Emergency Medicine; PCP Nurse Practitioner
DX: Z98.890 Other specified postprocedural states (principal)
CPT/HCPCS: 36415; 76705; 80053; 81003; 81025; 83690; 85025; 96360; 99284

== ENCOUNTER → 2021-04-21 15:13 | Outpatient (CLI) | payer OTHER, MEDICAID, SELFPAY ==
[2021-04-21 15:59] LABS: COVID19 -Nasal RAPID POSITIVE (Negative)
== END ==
PROVIDERS: PCP Nurse Practitioner; Referring Provider Nurse Practitioner; Visit Provider Nurse Practitioner
DX: J02.9 Acute pharyngitis, unspecified (principal); R09.89 Other specified symptoms and signs involving the circulatory and respiratory systems; R43.0 Anosmia; R43.2 Parageusia; R68.89 Other general symptoms and signs; Z20.822 Contact with and (suspected) exposure to COVID-19
CPT/HCPCS: 87635